=== PATIENT | female | born 2000 | race Caucasian/White ===

== ENCOUNTER 2022-05-22 19:49 | Emergency (ER) | payer OTHER ==
[2022-05-22] MEDS ORDERED: Mineral Oil 133 ML BOTTLE RECTAL ONE (21:10)
[2022-05-22] MEDS ORDERED: Na Phos,M-B/Na Phos,DI-B 60 ML, Mineral Oil 50 ML, Docusate Sodium 400 MG, Magnesium Ci... RECTAL ONE ×4 (21:11)
[2022-05-23] MEDS ORDERED: Magnesium Citrate Solution 296 ML Bottle ONE (01:00)
[2022-05-23] MEDS ORDERED: Magnesium Citrate Solution 296 ML Bottle PO ONE (01:00)
== END 2022-05-23 01:17 | disposition home or self-care (01) ==
LOC: JP.ED 19:49
DX: K59.01 Slow transit constipation (principal)
CPT/HCPCS: 74019; 81025; 99284; A9270; 99282

== ENCOUNTER 2025-07-14 16:20 | Emergency (ER) | payer OTHER, BC ==
[2025-07-14 17:18] LABS: BASOPHILS ABSOLUTE AUTO 0.04 K/uL (0.00-0.10); BASOPHILS PERCENT AUTO 0.4 % (0.1-1.3); EOSINOPHILS ABSOLUTE AUTO 0.08 K/uL (0.00-0.40); EOSINOPHILS PERCENT AUTO 0.9 % (0.0-5.4); IMMATURE GRAN ABSOLUTE AUTO 0.20 K/uL (0.00-0.23); IMMATURE GRAN PERCENT AUTO 2.2 % (0.0-0.7); LYMPHOCYTES ABSOLUTE AUTO 1.70 K/uL (0.8-3.3); LYMPHOCYTES PERCENT AUTO 18.9 % (11.4-47.7); MONOCYTES ABSOLUTE AUTO 0.62 K/uL (0.20-0.90); MONOCYTES PERCENT AUTO 6.9 % (3.3-12.6); NEUTROPHILS ABSOLUTE AUTO 6.35 K/uL (1.0-7.6); NEUTROPHILS PERCENT AUTO 70.7 % (40.0-78.1); PLATELET COUNT,PLT 228 K/uL (130-375); RED BLOOD CELL COUNT 4.03 M/uL (3.77-5.24); WHITE BLOOD CELL COUNT,WBC 9.0 K/uL (3.2-11.0)
[2025-07-14 17:33] LABS: BLOOD UREA NITROGEN,BUN 7.0 mg/dL (7-18); CARBON DIOXIDE,CO2 28.0 mmol/L (21-32); CHLORIDE,CL 104.0 mmol/L (100-108); CREATININE 0.5 mg/dL (0.6-1.0); EST CRCL DRUG DOSING (CG) 163.82 mL/min; ESTIMATED GFR 135.0 mL/min (>60); GLUCOSE RANDOM 127.0 mg/dL (74-106); POTASSIUM,K 3.4 mmol/L (3.6-5.2); SODIUM,NA 138.0 mmol/L (140-148)
[2025-07-14 18:00] LABS: GLUCOSE,URINE NEGATIVE (NEGATIVE); OCCULT BLOOD,URINE NEGATIVE (NEGATIVE)
[2025-07-14 18:02] LABS: APPEARANCE,URINE SLIGHTLY CLOUDY (CLEAR); UROTHELIAL CELLS,URINE NOT SEEN /HPF
[2025-07-14 18:03] LABS: SQUAMOUS EPITHELIAL CELLS,UR FEW /HPF
== END 2025-07-14 18:33 | disposition home or self-care (01) ==
LOC: JP.ED 16:20
DX: O99.891 Other specified diseases and conditions complicating pregnancy (principal); R00.2 Palpitations; Z3A.37 37 weeks gestation of pregnancy
CPT/HCPCS: 36415; 80048; 81001; 85025; 99284